=== PATIENT | female | born 1950 | race Caucasian/White ===

== ENCOUNTER 2019-05-03 20:10 | Emergency (ER) | payer MEDICARE, BC ==
[2019-05-03 20:22] VITALS: BP 124/63
[2019-05-03] MEDS: Azithromycin TAB* 250 MG PO ONE (21:27)
[2019-05-03] MEDS: predniSONE TAB* 20 MG PO ONE (21:28)
[2019-05-03] MEDS: Albuterol HFA INHALER* 8 gm MDI INH ONE (21:29)
--- NOTE | 2019-05-03 21:31 | UC ---
UC General HPI - HPI Summary HPI Summary: pt presents with a 1 week hx of cough which is better and now upper respiratory symptoms. she denies any fever. she feels like she gets tight in her chest on occasion and a posible weheze. she denies any sick contacts. - History of Current Complaint Chief Complaint: UCRespiratory Stated Complaint: COUGH Hx Obtained From: Patient Onset Severity: Mild Current Severity: Mild Pain Intensity: 0 - Allergy/Home Medications Allergies/Adverse Reactions: Allergies Allergy/AdvReac Type Severity Reaction Status Date / Time No Known Allergies Allergy Verified 05/03/19 20:23 PMH/Surg Hx/FS Hx/Imm Hx Previously Healthy: Yes - Surgical History Surgical History: Yes Surgery Procedure, Year, and Place: Bilat hip replacements: Left hip 04/2007; Right hip 09/2007. pt denies any other FX's. Denies any other surgeries to her abdomen area. Pt takes a Miguelito. Supplement, and did not take supplement for 2 days prior to Dexa Study. - Social History Alcohol Use: Rare Alcohol Amount: 1 q 2 months Substance Use Type: None Smoking Status (MU): Never Smoked Tobacco Have You Smoked in the Last Year: No Review of Systems All Other Systems Reviewed And Are Negative: Yes Constitutional: Positive: Negative Skin: Positive: Negative Eyes: Positive: Negative ENT: Positive: Ear Ache, Sinus Congestion Respiratory: Positive: Cough Cardiovascular: Positive: Negative Gastrointestinal: Positive: Negative Genitourinary: Positive: Negative Motor: Positive: Negative Neurovascular: Positive: Negative Musculoskeletal: Positive: Negative Neurological: Positive: Negative Psychological: Positive: Negative Is Patient Immunocompromised?: No Physical Exam Triage Information Reviewed: Yes Appearance: Well-Appearing, No Pain Distress, Well-Nourished Vital Signs: Initial Vital Signs Temp 99.7 F 05/03/19 20:19 Pulse 81 05/03/19 20:19 Resp 17 05/03/19 20:19 BP 124/63 05/03/19 20:19 Pulse Ox 98 05/03/19 20:19 Vital Signs Reviewed: Yes Eye Exam: Normal ENT Exam: Normal Dental Exam: Normal Neck exam: Normal Respiratory Exam: Normal Respiratory: Positive: Chest non-tender, Lungs clear, Normal breath sounds Cardiovascular Exam: Normal Cardiovascular: Positive: RRR Abdomen Description: Positive: Nontender, Soft Bowel Sounds: Positive: Present Musculoskeletal Exam: Normal Neurological Exam: Normal Psychological Exam: Normal Skin Exam: Normal Course/Dx - Course Course Of Treatment: pt has been sick for one week. pt has a uri with a mild bronchitis. pt given inhaler for albuterol inhaler, aeochamber, prednisone and abx. rx also written. pt deferred a work excuse. - Diagnoses Provider Diagnosis: URI (upper respiratory infection), Bronchitis Discharge - Sign-Out/Discharge Documenting (check all that apply): Patient Departure All imaging exams completed and their final reports reviewed: No - Discharge Plan Condition: Stable Disposition: HOME Prescriptions: Albuterol HFA INHALER* [Ventolin HFA Inhaler*] 2 puff INH Q6H PRN #1 mdi PRN Reason: Wheezing Azithromyxin SCOTTY (NF) [Z-Scotty (Zithromax) 250 mg tabs #6] 2 tab PO .TODAY, THEN 1 DAILY #6 tab predniSONE TAB* [Deltasone 20 MG TAB*] 60 mg PO DAILY #12 tab Patient Education Materials: Upper Respiratory Infection (ED), Acute Bronchitis (ED) Referrals: Yessenia Steel MD [Primary Care Provider] - Additional Instructions: take all medications as instructed. return if worse or any new symptoms. take tylenol or motrin for pain or discomfort. - Billing Disposition and Condition Condition: STABLE Disposition: Home
== END 2019-05-03 21:34 | disposition home or self-care (01) ==
LOC: UCCORT 20:10
DX: J06.9 Acute upper respiratory infection, unspecified (principal); J40 Bronchitis, not specified as acute or chronic
CPT/HCPCS: 99213; A9270-GY; G0463; J7512

== ENCOUNTER 2019-12-14 07:01 | Day surgery (SDC) | payer MEDICARE, BC ==
[~2019-12-14 07:01] MED LIST: Buffered Lidocaine 1% SYRIN* 1 ML/SYRINGE INTRADERM ONE; Dexamethasone TAB* 4 MG PO ONE; DiMENhydriNATE IV* 50 MG/ML VIAL IV PUSH PRN; Famotidine IV* 10 MG/ML 2 ML (20 mg) IV ONE; HYDROmorphone INJ1* 1 MG/ML SYRINGE IV PRN; Lactated Ringers 1000 ML Bag* 1,000 ML IV SCH; Naloxone* 0.4 MG/ML 1 ML VIAL IV PRN; Ondansetron ODT TAB* 4 MG PO ONE; PROCHLORPERAZINE INJ 5 MG/ML 2 ML VIAL IV PRN; fentaNYL* 50 MCG/ML 2 ML VIAL (100 MCG VIAL) IV PRN
[2019-12-14] MEDS ORDERED: Lidocaine 2.5%/Prilocain 2.5%* 5 GM TUBE ONE (07:19)
[2019-12-14] MEDS ORDERED: Buffered Lidocaine 1% SYRIN* 1 ML/SYRINGE INTRADERM ONE (07:19)
[2019-12-14] MEDS ORDERED: Famotidine IV* 10 MG/ML 2 ML (20 mg) ONE (12:04)
[2019-12-14] MEDS ORDERED: Dexamethasone TAB* 4 MG ONE (12:04)
[2019-12-14] MEDS ORDERED: Ondansetron ODT TAB* 4 MG ONE (12:04)
[2019-12-14] MEDS ORDERED: ceFAZolin 2 GM PREMIX in ORs 2 GM/50 ML BAG ONE (12:04)
[2019-12-14] MEDS ORDERED: fentaNYL* 50 MCG/ML 2 ML VIAL (100 MCG VIAL) ONE (13:25)
[2019-12-14] MEDS ORDERED: KETAMINE HCL* 50 MG/ML 10 ML VIAL ONE (13:25)
[2019-12-14] MEDS ORDERED: Midazolam* 1 MG/ML 5 ML VIAL (5 MG) ONE (13:25)
[2019-12-14] MEDS ORDERED: Lidocaine 1% w EPI 1:200,000* SDV 30 ML VIAL ONE (13:58)
[2019-12-14] MEDS ORDERED: Bupivacaine 0.5%* 50 ML MDV VIAL ONE (13:58)
[2019-12-14] MEDS ORDERED: Propofol* 10 MG/ML 20 ML BTL ONE (15:30)
[2019-12-14] MEDS ORDERED: Propofol* 500 MG/50 ML BTL ONE (15:30)
[2019-12-14] MEDS ORDERED: Lidocaine 2% PF * 5 ML VIAL ONE (15:30)
--- NOTE | 2019-12-14 15:42 | BRIEFOPN ---
Brief Operative/Procedure Note - Operation Details Pre-Op Diagnosis: Left breast cancer Post-Op Diagnosis: same Procedures: Needle localization excision of left breast cancer and sentinel lymph node biopsy Surgeon(s)/Proceduralists: Surgeon: Jose. Asst: Kel Anesthesia: local-MAC Estimated Blood Loss: 10 cc Findings: see dictation Specimen(s)/Culture(s) Description: left breast cancer. sentinel lymph node. additional axillary contents Complications: none
[2019-12-14 17:20] VITALS: BP 147/88
--- NOTE | 2019-12-14 23:56 | OP ---
CC: Yessenia Steel MD; [facility] * DATE OF OPERATION: 12/14/19 - MERGED WITH [facility] DATE OF : 48. SURGEON: Roseanna Garcia MD. LOIN TRIMMER: BETSY Bess student. PRE-OP DIAGNOSIS: Left breast cancer. POST-OP DIAGNOSIS: Left breast cancer. OPERATIVE PROCEDURE: Needle localization, excision of left breast cancer, and sentinel lymph node biopsy. INDICATIONS: Ms. Jones is a 69-year-old woman recently diagnosed with breast cancer, who has opted to undergo breast conservative therapy. DESCRIPTION OF PROCEDURE: On the morning of surgery, she underwent needle localization and sentinel lymph node localization without difficulty. She was then brought to the operating room, placed on the OR table in the supine position and given IV sedation. The left breast was prepped and draped in the usual sterile fashion taking care not to dislodge the localizing wire. After infiltrating with local anesthetic, a curvilinear elliptical incision encompassing the wire was made. Subcutaneous tissue was then divided with electrocautery to excise the massive tissue from around the wire. This was marked in the usual fashion and handed off as a specimen. Hemostasis was then assured with electrocautery. Once this appeared adequate, a search was made for the sentinel node. Since the breast incision was fairly close to the patient the axilla, the decision was made to approach the axilla through the breast incision. Using electrocautery, the axilla was accessed and then using the navigator, the approximate location of the sentinel node was identified. It was dissected free from surrounding tissue and its in situ counts were checked and found to be around 1300. The node was excised using sharp and blunt dissection and small clips to control the lymphatic and blood vessels that approached the gland. Once it was out, its ex vivo counts were checked and were found to be 1500, the axillary bed counts were 8. Clips were then placed in the breast cavity to alonso its confines. The wound was additionally irrigated with saline and additional local was instilled into the wound. Closure was then accomplished with 3-0 Vicryl in the subcutaneous layer and the skin was closed with 4-0 Prolene in a subcuticular fashion. Steri-Strips and a dry sterile dressing were applied. All sponge and instrument counts were correct. The patient tolerated the procedure well and was transferred to recovery in a stable condition. [id number]/[facility] #: [id number] [facility]
== END 2019-12-14 17:15 | disposition home or self-care (01) ==
LOC: SDS 07:01
PROVIDERS: ATTEND Surgery
DX: C50.912 Malignant neoplasm of unspecified site of left female breast (principal); E03.9 Hypothyroidism, unspecified
CPT/HCPCS: 77061; 78195; 88307; 88342; A9270-GY; A9541; G0279; J0690; J2001; J2250; J2704; J3010; J3490; J8540